=== PATIENT | female | born 1965 | race African-American/Black ===

== ENCOUNTER 2016-06-04 12:12 | Inpatient (IN) | payer MEDICARE, OTHER ==
--- NOTE | ~2016-06-04 | A ---
[facility] Nutrition Therapy DATE: 06/05/16 Patient: AGUILA NATHAN Physician: WOLFGANG Address: [address] [facility] Room/Bed: [address] [place] [address], Zip: [place] [address] Admit Date: 06/04/16 Date of : [birth year] Height: 5 3 Weight: 134 60.8 NUTRITIONAL ASSESSMENT: REASON: 2 NUTRITION RISK PT RE: HOME TUBE FEEDS/TPN + POOR PO INTAKE PT IS 51 Y.O. FEMALE ADMITTED FOR ACUTE PANCREATITIS PMH: CHRONIC PANCREATITIS, ETOH ABUSE, GERD, PNA, ANXIETY, DEPRESSION, PUD, HTN, BIPOLAR DISORDER, HYPOTHYROIDISM, TB, CHOLY, GASTRIC ULCERS Anthropometrics: 5'3", WT: 150# (PER PT) (68 KG), BMI: 26.6 Labs: GLU: 191, BUN: <5, K+: 2.5, NA+:131, AST: 44, ALT: 59, M.0, AMYLASE: 171, LIPASE: 339 Meds: ZOFRAN, PHENERGAN, KCL, MAG SULFATE, NACL, THIAMINE, FOLIC ACID, MVI I/O & Bowel function: 0/800 Skin Integrity: NO KNOWN SKIN ISSUES Estimated Nutrition Needs: INCREASED NUTRIENT NEEDS 2' WEIGHT LOSS NOTED, CURRENT CONDITION, PMH Assessment: CHART REVIEWED AND EVENTS NOTED. PT SEEN FOR 2 NUTRITION RISK POINTS. PT CONFIRMED DECREASED PO INTAKE 2' DECREASED APPETITE PAST 2-3 WEEKS. PT NOTES ABD PAIN/N/V. PT REPORTS LOSING ~20# PAST 2-3 MONTHS/11.7% SEVERE WEIGHT LOSS NOTED (NOTES UBW IS ~170#). THIS RD ENCOURAGED SLOW GRADUAL PO INTAKE ONCE DIET ADVANCES. RD ALSO PROVIDED WRITTEN AND VERBAL LOW FAT DIET EDUCATION WELL ENCOURAGED ETOH CESSATION. PT REPORTED NO DIET QUESTIONS AT THIS TIME. RD TO FOLLOW. SEE RECOMMENDATIONS BELOW. OF NOTE, PT CONFIRMS SHE DOES NOT RECEIVE TPN AT HOME Dx: INADEQUATE PROTEIN-ENERGY INTAKE R/T DX, PMH AEB PT REPORT ABOVE, ~20#/11.7% SEVERE WEIGHT LOSS NOTED. Intervention: 1. NPO 2. LOW FAT DIET EDUCATION Monitoring, Evaluation and Goals: 1. PO INTAKE; PROVIDE AND CONSUME ADEQUATE NUTRITION W/NO C/O N/V/D (PO>50%) 2. LABS; ELECTROLYTES 3. GI; PROMOTE REGULAR GI FUNCTION [facility] Nutrition Therapy DATE: 06/05/16 Patient: AGUILA NATHAN Physician: WOLFGANG Address: [address] [place] [address] Room/Bed: [address] [place] [address], Zip: [place] [address] Admit Date: 06/04/16 Date of : [birth year] Height: 5 3 Weight: 134 60.8 MONITOR: -DIET ADVANCEMENT -PO INTAKE/APPETITE -LABS (K+, MG) -EDUCATION NEEDS Recommendations: 1. ONCE MEDICALLY FEASIBLE, BEGIN WITH CLEARS AND ADVANCE DIET TOLERATED TO LOW FAT 2' DX, PMH 2. IF PO INTAKE MINIMAL, RECOMMEND TO ORDER APPROPRIATE SUPPLEMENTS BID (ENSURE COMPACT, GLUCERNA SHAKES, ENSURE PUDDING) 3. REPLACE ELECTROLYTES NEEDED (K+, MG) 4. ENCOURAGE ADEQUATE KCAL AND PROTEIN INTAKE RD WILL F/U PER PROTOCOL PT IS MODERATELY COMPROMISED Respectfully, BEE JENKINS MS, RD, LD Food and Nutritional Services [facility] cc: client file
--- NOTE | ~2016-06-04 | FU ---
[facility] Nutrition Therapy DATE: 06/10/16 Patient: AGUILA NATHAN Physician: WOLFGANG Address: [address] [place] [address] Room/Bed: [address] [place] [address], Zip: [place] [address] Admit Date: 06/04/16 Date of : [birth year] Height: 5 3 Weight: 161 73.4 NUTRITION MONITORING/FOLLOW-UP: Reason: Follow-up Anthropometrics: Ht: 5'3" Adm wt: 150# BMI: 26.6 Current wt: 161# Labs: Na+ 130, BUN 7, Alb 3.3, Mg++ 1.5, Amyl 58, Lip 53 Meds: Mg, Lopressor, K, Synthroid, Zofran, Phenergan, KCl, NaCl I&O's: 104/2025, 1 BM Skin: no issues Estimated Nutrition Needs: 3055-8591 kcal (20-25 kcal/kg) 82-102 g protein (1.2-1.5 g/kg) Assessment: Chart reviewed, events noted. Pt has been on NPO/clear liquids x 6 days. Pt reported being hungry. Pt c/o chronic abdominal pain and diarrhea. Per RN, pt refused 1-2 clear liquid diet meals and noted only taking bites when given food. Per RN and chart, no plans in place for diet advancement at this time. See recommendations below. Dx: Inadequate protein-energy intake RT PMH AEB ~20#/11.7% severe wt loss, NPO/clear liquid diet x 6 days. -ACTIVE Intervention: 1. Alternative nutrition support 2. NPO/CL x 6 days Monitoring, Evaluation and Goals: 1. Alternative nutrition support; provide >80% of estimated needs 2. Weight; prevent unintentioal weight loss 3. Labs; WNL; Mg++, Amyl, Lip Recommendations: 1. Once medically feasible, advance diet as tolerated to low fat 2' dx, PMH. 2. If pt unable to tolerate PO intake, consider alternative nutrition support of Vital 1.5 @ 20 mL/hr, advance 10 mL q 8 hrs to goal rate of 45 mL/hr + sugar free Prostat BID x 22 hrs (pt on synthroid-hold 1 hr before and 1 hr after administration). This will provide: 1685 kcal/ 96 g protein/ 752 mL free H2O. Free water flushes per . [facility] Nutrition Therapy DATE: 06/10/16 Patient: AGUILA NATHAN Physician: WOLFGANG Address: [address] [place] [address] Room/Bed: [address] [place] [address], Zip: [place] [address] Admit Date: 06/04/16 Date of : [birth year] Height: 5 3 Weight: 161 73.4 3. If TPN warranted, begin TPN 25% dextrose, 5% AA @ 20 mL/hr, advance 10 mL q 12 hrs to goal rate of 70 mL/hr. This will provide: 1764 kcal/ 84 g protein/ GUR = 4.27. Of note pt to have pancreatitis, watch triglycerides. 4. Monitor labs daily (Mg++, K+, Phos, Na+) blood sugars and triglycerides. Status: Pt is at a moderate-severe nutritional risk. RD will f/u per protocol. Respectfully, Salud Talavera, Pipe Covering [employer]older Jenn Craft MS, RD, LD Food and Nutritional Services [facility] cc: client file
--- NOTE | ~2016-06-04 | CO ---
Unit #: [id number] #: [id number] Patient: AGUILA NATHAN [id number] [address] [place], [place] [address] [id number] I MR#: [id number] NAME: AGUILA NATHAN ROOM: 303 Age: 51 Sex: F Admission Date: 06/04/2016 : 1965 Attending Physician: Dionne Hamm M.D. Primary Care Physician: Giovana Martines M.D. Consultation Date: 06/04/2016 CONSULTATION REPORT REASON FOR CONSULTATION Acute pancreatitis. HISTORY OF PRESENT ILLNESS Ms. Nathan is a 51-year-old, -Faroese female. She was admitted with complaints of worsening abdominal pain and she has chronic alcoholic pancreatitis. She says her symptoms have been getting worse for the last three days. She has not been able to eat and throwing up. She denies any fever or chills. She denies any hematemesis. Abdominal pain is mostly in the upper abdomen, worse with food. PAST HISTORY Significant for alcoholic pancreatitis, also with history of depression, hypertension. She is status post gallbladder surgery. She has also had pancreatic pseudocyst drained, as well as ERCP for pancreatic drainage with Dr. Hoyos previously. MEDICATIONS AT HOME Voltaren, trazodone, metoprolol, hydralazine, Phenergan, Zyrtec, Synthroid, Singulair, olanzapine, Prozac and Remeron. ALLERGIES Allergies to Demerol. SOCIAL HISTORY She is actively drinking alcohol up to a pint a day by chart review. She denied any smoking or any other drug abuse. REVIEW OF SYSTEMS Complete ten point review of systems was done, which is unremarkable other than as mentioned above. PHYSICAL EXAMINATION VITAL SIGNS: Stable, temperature 99, pulse 78, respirations 16, blood pressure 195/123 on arrival, it is better now. HEENT: Pupils equal and reactive. Sclerae anicteric. Oral mucosa moist. NECK: No JVD. No lymphadenopathy. CHEST: Clear to auscultation bilaterally. CARDIOVASCULAR SYSTEM: Regular rate and rhythm. No murmurs. ABDOMEN: Tenderness, epigastric left upper quadrant area. No guarding. No rebound. No ascites. No organomegaly. No masses palpable. EXTREMITIES: Without clubbing, cyanosis or edema. NEUROLOGIC: Intact. SKIN: Warm and dry. Unit #: [id number] #: [id number] Patient: AGUILA NATHAN DIAGNOSTIC STUDIES LABORATORY STUDIES: Sodium 133, potassium 2.8, AST 91, ALT 88, amylase 131, lipase 410. Coags not done. CBC with a hemoglobin of 10.8, white count 6.5, and platelet count of 247. ASSESSMENT AND PLAN 1. Patient with chronic pancreatitis, alcohol related with active heavy drinking now with worsening symptoms. Acute on chronic pancreatitis, most likely. Will continue with conservative treatment. 2. Anemia, history of gastric ulcers. Continue PPI therapy. 3. Alcoholism. Will watch for DT precautions. 4. History of interventions with Dr. Hoyos in the past. Will get the reports. Will get a CT scan to look for any recurrent stenosis or other complications. Thank you Dr. Gibbons for this interesting consult. Will follow along. Dictated by... Anitha Patel/adriana TD: 06/05/2016 09:03 JOB #: [id number] CONSULTATION REPORT Page 1 of 1 X Jai King MD X CONSULTATION REPORT
--- NOTE | ~2016-06-04 | CO ---
Unit #: [id number] #: [id number] Patient: ORLANDO NATHAN [id number] [facility]. [place], [place] [address] [id number] I MR#: [id number] NAME: ORLANDO NATHAN ROOM: 237 Age: 51 Sex: F Admission Date: 06/04/2016 : 1965 Attending Physician: Dionne Hamm M.D. Primary Care Physician: Giovana Martines M.D. Consultation Date: 06/05/2016 CONSULTATION REPORT REASON FOR CONSULTATION Anxiety/depression, mood lability. HISTORY OF PRESENT ILLNESS Ms. Orlando Nathan is a 51-year-old -[place]ian female seen in 303, bed 1, at [facility]. The patient was admitted with acute pancreatitis. Patient reports taking medication for depression/anxiety. The patient is withdrawn, isolative, flat affect, guarded. The patient was admitted with abdominal pain. The patient also has a history of alcohol abuse but denied any recent abuse. Denied any use of drugs. Patient currently denied any suicidal or homicidal ideation but reported feeling sad and depressed, trouble sleeping, anxiety. PAST PSYCHIATRIC HISTORY Remarkable for history of alcohol abuse and depression/anxiety. MEDICAL HISTORY AND MEDICATION HISTORY Is remarkable for a history of pancreatitis with pseudocyst, alcohol abuse, hypertension, gastroesophageal reflux disease, tuberculosis treated, bipolar disorder, hypothyroidism. Medication history - patient is currently Prozac 10 mg daily; Remeron; Olanzapine 2.5 mg at bedtime; Synthroid; Singulair; Zyrtec; Phenergan; hydralazine; metoprolol; trazodone 150 mg at bedtime; and Voltaren gel. FAMILY HISTORY AND SOCIAL HISTORY The patient has a good support system. No history of any abuse. History of substance abuse in the past. REVIEW OF SYSTEMS A complete review of systems is unremarkable. MENTAL STATUS EXAMINATION General appearance - Patient is dressed casually, lying comfortably in bed, withdrawn, isolative, flat affect. Attention span and concentration - Fair. Speech - slow in volume, monotone. Oriented to place and person. Mood and affect - Sad, dysphoric, withdrawn, isolative. Thought process - Coherent. Thought content - Guarded. Paranoid but denied any thoughts of harming self or others or any psychotic symptoms. Denied any auditory or visual hallucination. Recent and remote memory - fair. Language - Able to name objects, repeat phrases. Fund of knowledge - Fair. Insight and judgment - Fair to slightly impaired. DIAGNOSIS PSYCHIATRIC: Major depressive disorder, recurrent, severe, F33.2. Unit #: [id number] #: [id number] Patient: ORLANDO NATHAN SECONDARY DIAGNOSIS: Deferred. MEDICAL DIAGNOSIS: Please refer to H and P. STRESSORS: Psychosocial stressors. ASSESSMENT/PLAN 1. Supportive psychotherapy and psychoeducation provided to the patient. 2. Educated about benefits and side effects of medication and course and prognosis of illness. 3. If needed consider further adjustment of medication. Continue with the current combination of Prozac, Remeron, Zyprexa and Trazodone. If needed, consider Melatonin for sleep. Please feel free to call if any questions, telephone number . Dictated by... Philip Ya M.D. EVA/adriana TD: 06/08/2016 15:46 JOB #: [id number] CONSULTATION REPORT Page 1 of 1 X Philip Ya MD X CONSULTATION REPORT
--- NOTE | ~2016-06-04 | CT2 ---
[facility] A Service of [facility] & [facility] RADIOLOGY TEXT RESULTS PATIENT: AGUILA NATHAN LOCATION: [facility] 237-01 : [birth year] UNIT #: [id number] AGE: [address]: Dionne Hamm MD SEX: F ORDER DR: [id number] [facility] [address] [facility]. [place], [place] [address] [id number] MR#: [id number] Acc #: [id number] NAME: AGUILA NATHAN : 1965 SEX: F STUDY DATE/TIME: 06/04/2016 17:32 UNIT: CEDOF ROOM: 99677 STUDY DESCRIPTION: CT Abd and Pelv W Cont Attending Physician: Bhavani Gibbons M.D. Ordering Physician: Bhavani Gibbons M.D. Primary Care Physician: Giovana Martines M.D. MEDICAL IMAGING REPORT This report is preliminary unless electronic signature is present EXAM CT abdomen and pelvis with IV contrast 06/04/2016 COMPARISON August 08, 2015, July 12, 2015, August 16, 2005 INDICATIONS 51-year-old female with acute pancreatitis. Diffuse abdominal pain today. Vomiting and diarrhea. TECHNIQUE Axial CT imaging of the abdomen was performed after IV administration of 100 mL Isovue 370. Coronal and sagittal reformats were constructed. This CT exam was performed with one or more of the following radiation dose reduction techniques: automatic exposure control, adjustment of mA and/or kV according to patient size, and iterative reconstruction. FINDINGS As compared to August 08, 2015 pancreatic stent appears stable, terminating in the second portion of the duodenum. There is diffuse edema of the pancreas with peripancreatic fluid. No convincing evidence of abscess. There is hepatic steatosis. There has been prior cholecystectomy. There is a small fat-containing left inguinal hernia. There is dextroscoliosis of the lumbar spine. There is disc height loss and advanced degenerative endplate change at L2-L3 where there is also a small posterior disc protrusion. Anterior osteophyte is also noted at this level. No acute findings in the imaged lower chest. There is mild cardiomegaly. There is small amount of fluid around the spleen, likely transmitted from the pancreas. The adrenal glands, kidneys and urinary bladder are unremarkable. There is an exophytic uterine leiomyoma which is compressing the urinary bladder. This measures up to approximately 1.5 x 1.5 x 1.9 cm. No adnexal masses. Ingested contrast reaches the rectum. [facility] A Service of [facility] RADIOLOGY TEXT RESULTS PATIENT: AGUILA NATHAN LOCATION: A 237-01 : [birth year] UNIT #: [id number] AGE: [address]: Dionne Hamm MD SEX: F ORDER DR: There are scattered sigmoid and left colonic diverticula. There is no evidence of bowel obstruction. Appendix is normal. There is inflammatory change near the splenic flexure of the colon which appears to abut 1 of the diverticula of the colon. This is favored to be transmitted inflammatory frame changer primary diverticulitis as the diverticulum does not appear particularly inflamed. No pneumoperitoneum. No convincing evidence of pancreatic necrosis at this time. No evidence of abscess. There is normal caliber of the abdominal aorta. The splenic vein does appear attenuated as it passes posterior to the pancreas but it remains patent. There is no evidence of venous thrombosis on the current exam. Bilateral pelvic phleboliths. No adenopathy. IMPRESSION 1. Findings most consistent with an acute uncomplicated pancreatitis. Pancreatic stent remains in stable position from August 08, 2015. The distal tip terminates in the duodenum. 2. Small amount of free fluid along the pancreas and tracking to the left upper quadrant of the abdomen. There is some free fluid and inflammatory change which abuts the splenic flexure of the colon where there is a small diverticulum. This diverticulum does not appear inflamed and this likely reflects transmitted inflammatory change and much less likely an acute diverticulitis. 3. Prior cholecystectomy. 4. Small fat-containing left inguinal hernia. 5. Severe degenerative disc and endplate change at L2-L3. 6. Subserosal exophytic uterine leiomyoma measuring up to 1.9 cm. 7. Not mentioned specifically in the body of the report there appears to be a prominent lymph node adjacent to the pancreatic body measuring up to 8 mm short axis, likely reactive. Consider imaging followup. Dictated by... Crow Ruiz M.D. THIS IS AN ELECTRONICALLY VERIFIED REPORT Crow Ruiz M.D. at 06/09/2016 9:01 AM Pierce TD: 06/04/2016 18:21 JOB #: [id number] MEDICAL IMAGING REPORT Page 1 of 1 COPY
--- NOTE | ~2016-06-04 | EKG ---
PATIENT: AGUILA NATHAN UNIT #: [id number] Ventricular Rate: 89 BPM Atrial Rate: 89 BPM P-R Interval: 150 ms QRS Duration: 94 ms Q-T Interval: 414 ms QTC Calculation(Bezet): 503 ms P [place]: 24 degrees Calculated R [place]: 29 degrees Calculated T [place]: 9 degrees Diagnosis Line: Normal sinus rhythm Diagnosis Line: Nonspecific ST and T wave abnormality Diagnosis Line: Prolonged QT Diagnosis Line: Abnormal ECG Diagnosis Line: When compared with ECG of 03-JAN-2009 20:42, Diagnosis Line: QRS duration has increased Diagnosis Line: Confirmed by BESSIE BARKER MD ([id number]) on 06/04/2016 Diagnosis Line: 9:24:03 PM INTERPRETING MD: MJ VELASCO
--- NOTE | ~2016-06-04 | HP ---
Unit #: [id number] #: [id number] Patient: AGUILA NATHAN [id number] [facility]. [place], [place] [address] [id number] I MR#: [id number] NAME: AGUILA NATHAN ROOM: 44031 Age: 51 Sex: F Admission Date: 06/04/2016 : 1965 Attending Physician: Bhavani Gibbons M.D. Primary Care Physician: Giovana Martines M.D. HISTORY AND PHYSICAL CHIEF COMPLAINT Abdominal pain. HISTORY OF PRESENT ILLNESS The patient is a 51-year-old female with a past medical history of pancreatitis, alcohol abuse, pancreatic pseudocyst, hypertension, GERD, TB, and bipolar disorder, who presented to the emergency department for evaluation of the above. The patient states that she has had decreased appetite for the past two to three weeks. She has had three days of nausea and vomiting. She reports more than 10 bouts of nonbloody emesis within the past 24 hours. She has also had a few bouts of loose stool. She has had epigastric pain that started yesterday that she describes as "sharp." It has been constant in nature. There are no exacerbating or alleviating factors. She states that the pain is similar to when she has had pancreatitis in the past. She denies any urinary symptoms. She states that she has lost about 20 pounds over the past two months. Her last drink was three days ago. She typically drinks a pint of alcohol five days a week. In the emergency department, amylase and lipase are 131 and 410, respectively. Potassium is 2.8. She is being admitted to [facility] for evaluation and further treatment. PAST MEDICAL HISTORY 1. Admission to [facility] August 08, 2015, for pancreatitis. She was transferred to [facility] due to recent stent placement done by Dr. Hoyos. Patient states that the stent has since been removed. She does not see Dr. Hoyos as an outpatient. 2. History of pancreatitis with pseudocyst, status post stent placement and removal. 3. Alcohol abuse. 4. Hypertension. 5. Gastroesophageal reflux disease. 6. Tuberculosis, treated. 7. Bipolar disorder. 8. Hypothyroidism. PAST SURGICAL HISTORY 1. Exploratory laparotomy. 2. Tonsillectomy. 3. Cholecystectomy. 4. Pancreatic stent. 5. Colonoscopy. Unit #: [id number] #: [id number] Patient: AGUILA NATHAN SOCIAL HISTORY The patient lives alone. There is no tobacco or illicit drug use. The patient drinks a pint of alcohol five days a week with the last drink being three days ago. She is currently on disability. FAMILY HISTORY Notable for her mother having hypertension. ALLERGIES DEMEROL. HOME MEDICATIONS 1. Voltaren gel. 2. Trazodone. 3. Metoprolol. 4. Hydralazine. 5. Phenergan. 6. Zyrtec. 7. Synthroid. 8. Singulair. 9. Olanzapine. 10. Prozac. 11. Remeron. REVIEW OF SYSTEMS A complete review of systems is negative except as indicated in the History of Present Illness. PHYSICAL EXAMINATION VITAL SIGNS: Temperature is 99.1, pulse 78, respirations 16, and blood pressure 195/123. GENERAL: Patient is an female who is awake, alert, and in no acute distress. HEENT: Head is atraumatic. Mucous membranes are dry. NECK: Supple. Trachea is midline. CARDIOVASCULAR: Regular rate and rhythm. LUNGS: Clear to auscultation bilaterally with no increased work of breathing. ABDOMEN: Soft. She is tender to palpation in the epigastric area. Bowel sounds are present in all four quadrants. EXTREMITIES: Nontender with no pedal edema. NEUROLOGIC: Patient is awake and alert. She follows commands. PSYCHIATRIC: Mood and affect are normal. Patient is cooperative. SKIN: Skin of examined areas is warm and dry. DIAGNOSTIC STUDIES LABORATORY: Complete blood count notable for hemoglobin and hematocrit of 10.8 and 34.7, respectively. Comprehensive metabolic panel notable for a sodium of 133, potassium 2.8, chloride 91, and AST and ALT 91 and 88, respectively. Amylase and lipase are 131 and 410, respectively. Alcohol level is 6. Urinalysis notable for trace protein. ASSESSMENT The patient is a 51-year-old female with: 1. Acute pancreatitis secondary to #2. 2. Alcohol abuse. 3. Hypokalemia. Unit #: [id number] #: [id number] Patient: AGUILA NATHAN 4. History of pancreatic pseudocyst, status post stent placement and removal. 5. Microcytic anemia. The patient's hemoglobin was 8.4 on December 04, 2015. It is 10.8 today. 6. Hypertension. 7. Gastroesophageal reflux disease. 8. Tuberculosis, treated. 9. Bipolar disorder. 10. Hypothyroidism. PLAN 1. Admit to intermediate level. 2. N.p.o. except ice chips. 3. P.r.n. morphine. 4. P.r.n. Zofran. 5. Check CT of the abdomen and pelvis with contrast for further evaluation of pancreatitis and history of pseudocyst. 6. IV fluids per alcohol withdrawal protocol. 7. Alcohol withdrawal protocol. 8. Librium. 9. Post Anesthesia Nurse/Social Work consult regarding alcohol abuse. 10. Consult Dr. King regarding pancreatitis. 11. Check magnesium level. 12. Potassium/magnesium protocol. 13. P.r.n. hydralazine. 14. Check urinalysis and urine toxicology screen. 15. EKG and cardiac enzymes. 16. Repeat labs in the morning including magnesium, amylase, and lipase. 17. SCDs for DVT prophylaxis. 18. Additional workup and consultants based on above. 1. Dictated by Bhavani Gibbons M.D. FAREED/rancho TD: 06/04/2016 16:01 JOB #: [id number] HISTORY AND PHYSICAL Page 1 of 1 X Bhavani Gibbons MD X HISTORY AND PHYSICAL
--- NOTE | ~2016-06-04 | DS ---
Unit #: [id number] #: [id number] Patient: AGUILA NATHAN [id number] [address] [place], [place] [address] [id number] I MR#: [id number] NAME: AGUILA NATHAN ROOM: 237 Age: 51 Sex: F Admission Date: 06/04/2016 : 1965 Discharge Date: 06/10/2016 Attending Physician: Dionne Hamm M.D. Primary Care Physician: Giovana Martines M.D. DISCHARGE SUMMARY FINAL DIAGNOSES 1. Acute pancreatitis. 2. Hypokalemia. 3. Hypomagnesemia. SECONDARY DIAGNOSES 1. Hypertension. 2. Gastroesophageal reflux disease. 3. History of bipolar disorder. 4. Hypothyroidism. CONSULTS 1. Interventional radiology for port placement. 2. Dr. King, GI. PROCEDURES She had a PowerPort placed in the right anterior chest wall on 06/10/16. HOSPITAL COURSE A 51-year-old -[place] female who basically is well known to me presents here to the hospital with abdominal pain. She was admitted for abdominal pain and a flare up of pancreatitis. She does have a history of alcohol abuse and she has seen Dr. Salcedo in the past. She was seen by Dr. King who basically agreed with conservative management and encouraged her to follow up with Dr. Salcedo as an outpatient. She had a CT scan of her abdomen and pelvis on 06/04/16 and findings were most consistent with an acute uncomplicated pancreatitis. The pancreatic stent remained stable in position from August 08, 2015. The distal tube terminates in the duodenum. There was a small amount of free fluid along the pancreas, tracking to the left upper quadrant of the abdomen with some free fluid and inflammatory change was noted. She had a fat-containing left inguinal hernia also identified and she has severe degenerative disc and endplate change of L2-3 vertebrae. She had a subserosal exophytic uterine leiomyoma measuring up to 1.9 cm and they also identified a likely reactive lymph node measuring up to 8 mm adjacent to the pancreatic body and they said it was likely reactive and to consider followup. Patient did improve clinically. She was treated with IV fluids, n.p.o. and pain medication. Pain medications were adjusted. Eventually her diet was planned to be advanced. However, prior to Unit #: [id number] #: [id number] Patient: AGUILA NATHAN she lost her IV access and decision was made to consult Interventional Radiology for port placement. Port was placed. She is evaluated, suitable and stable for discharge with discharge in stable condition. FOLLOWUP 1. Patient has a followup appointment in my office on 06/11/16 at 10:00 a.m. in the morning. 2. The patient is also schedule to follow up with Interventional Radiology on 06/20/16 at 11:[address] [facility]. MEDICATIONS ON DISCHARGE Include: 1. Magnesium oxide 400 mg p.o. b.i.d. for hypomagnesemia. 2. Prozac 10 mg p.o. q.h.s. 3. Trazodone 150 mg p.o. q.h.s. 4. Zyrtec 10 mg p.o. daily. 5. Phenergan 25 mg p.o. q.6 h. p.r.n. for nausea. 6. Bentyl 10 mg p.o. q.8 h. p.r.n. cramps. 7. Librium 25 mg p.o. q.12 h. 8. Metoprolol tartrate 100 mg p.o. b.i.d. 9. Hydralazine 25 mg p.o. q.8 h. 10. Singulair 10 mg p.o. daily. 11. Multivitamin one tablet p.o. daily. 12. Melatonin 3 mg p.o. q.h.s. 13. Diclofenac topical gel 100 g apply topically to the affected skin. 14. Roxicodone 10 mg p.o. q.4 h. p.r.n. per home dose. 15. Olanzapine 2.5 mg p.o. q.h.s. 16. Levothyroxine 15 mcg p.o. daily DISCHARGE INSTRUCTIONS Discharge instruction would include: 1. Do not shower for 48 hours. 2. Do not scrub the right front of the chest. 3. Port needs to be flushed with heparin, flush 10 units per mL once at least monthly. Time spent coordinating discharge is about 45 minutes. Dictated by... Anitha HsuO/carla TD: 06/10/2016 18:23 JOB #: [id number] Unit #: [id number] #: [id number] Patient: VENITAAGUILA DISCHARGE SUMMARY Page 1 of 1 X Giovana Martines MD X DISCHARGE SUMMARY
--- NOTE | ~2016-06-04 | CO ---
Unit #: [id number] #: [id number] Patient: ORLANDO NATHAN [id number] [address] [place], [place] [address] [id number] I MR#: [id number] NAME: ORLANDO NATHAN ROOM: 303 Age: 51 Sex: F Admission Date: 06/04/2016 : 1965 Attending Physician: Dionne Hamm M.D. Primary Care Physician: Giovana Martines M.D. Consultation Date: 06/06/2016 CONSULTATION REPORT REASON FOR CONSULTATION Followup. DISCUSSION Ms. Orlando Nathan is a 51-year-old female seen in followup on 06/06/16 in room 303. The patient was admitted with acute pancreatitis. The patient reported that she is still having difficulty with sleep, compliant with medication. Withdrawn, (1) , flat affect but denied any thoughts of harming self or others. The patient is currently on Prozac, Zyprexa combination. The patient is also on trazodone. REVIEW OF SYSTEMS A complete review of systems is unremarkable. MENTAL STATUS EXAMINATION General appearance - Patient is dressed casually. Attention span, concentration - Fair. Speech - Regular rate. Oriented to time, place and person. Mood and affect - Sad, dysphoric. Thought process - Coherent. Thought content - Guarded. Paranoid but denied any thoughts of harming self or others. Recent and remote memory - Fair. Language - Able to name objects, repeat phrases. Fund of knowledge - Fair. Insight and judgment - Fair to slightly impaired. DIAGNOSIS PSYCHIATRIC: Major depressive disorder, recurrent, severe, F33.2. SECONDARY DIAGNOSIS: Deferred. ASSESSMENT AND PLAN 1. Supportive psychotherapy and psychoeducation provided to the patient. 2. Educated about benefits and side effects of medication and course and prognosis of illness. 3. Advised at this time to continue with current medication, a combination of Prozac, Zyprexa and Desyrel. The patient is on Desyrel 150 mg daily but still having trouble with sleep. Plan to add melatonin 5 mg at bedtime. If needed, consider further adjustment of medications. Please feel free to call with any questions. Dictated by... Unit #: [id number] #: [id number] Patient: ORLANDO NATHAN Anitha Kirby TD: 06/07/2016 15:50 JOB #: [id number] CONSULTATION REPORT Page 1 of 1 X Philip Ya MD CONSULTATION REPORT
--- NOTE | ~2016-06-04 | XA91 ---
[facility] A Service of [facility] & [facility] RADIOLOGY TEXT RESULTS PATIENT: AGUILA NATHAN LOCATION: C2A - : [birth year] UNIT #: [id number] AGE: [address]: Dionne Hamm MD SEX: F ORDER DR: [id number] [facility] [address]. [place], [place] [address] [id number] I MR#: [id number] Acc #: [id number] NAME: AGUILA NATHAN : 1965 SEX: F STUDY DATE/TIME: 06/10/2016 13:31 UNIT: C2A ROOM: 237 STUDY DESCRIPTION: XA CVC Tunneled W Port Attending Physician: Dionne Hamm M.D. Ordering Physician: Dionne Hamm M.D. Primary Care Physician: Giovana Martines M.D. MEDICAL IMAGING REPORT This report is preliminary unless electronic signature is present EXAM MediPort placement INDICATION New for IV access in a patient with a history of pancreatitis. She has had a prior history of pancreatic stent and was recently admitted with pancreatitis on June 04, 2016. PROCEDURE The procedure was explained to the patient. The risks, benefits, potential complications and potential for alternatives forms of treatment. Informed consent was obtained and prior to initiating the procedure, a formal timeout procedure was performed. Using all elements of maximal sterile barrier technique including hand hygiene, caps, sterile gowns and gloves, and masks, the right neck was prepped with 2% Chlorhexidine cutaneous antisepsis and covered with a large sterile sheet. Real-time sterile ultrasound guidance was used to localize the right internal jugular vein which was found to be patent and compressible. Hard copy ultrasound image was obtained and after local anesthesia with 1% Xylocaine. The vein was punctured. Using real-time sterile ultrasound guidance, an 0.018 guidewire was advanced into the superior vena cava under fluoroscopic guidance. Micropuncture sheath was placed and a J-wire was advanced into the inferior vena cava under fluoroscopic guidance. At this point, the skin and subcutaneous tissues of the right anterolateral chest wall were anesthetized with buffered lidocaine and lidocaine with epinephrine. A small skin incision was made and the port pocket was created using a combination of blunt and sharp dissection. The pocket was seated within the pocket and secured using two 3-0 Vicryl sutures and was tunneled up through the right anterolateral chest wall to the insertion side at the neck. A sheath was advanced over the wire, and the catheter was measured and trimmed and was then advanced through peel-away sheath and positioned at the cavoatrial junction. [facility] A Service of [facility] RADIOLOGY TEXT RESULTS PATIENT: AGUILA NATHAN LOCATION: [facility] 237-01 : [birth year] UNIT #: [id number] AGE: [address]: Dionne Hamm MD SEX: F ORDER DR: Following placement, the catheter flushed and aspirated easily. It was left accessed as the patient has very limited IV access. Deep layer of the port pocket was closed using interrupted 3-0 Vicryl sutures and a running 4-0 Monocryl suture was used close the skin. A single 4-0 Monocryl suture was used to close the insertion site at the neck and Dermabond was supplied to act as a dressing. Patient tolerated the procedure well. Total fluoroscopy time was 0.2 minutes and a single fluoroscopic image was obtained. Patient did received conscious sedation consisting of 5 mg of Versed and 200 mcg of Fentanyl. Continuous monitoring was provided throughout the procedure. Total sedation time was 1 hour and 5 minutes. Continuous monitoring was provided by the IVR nurse. IMPRESSION Successful placement of a right femoral jugular vein MediPort which terminates at the cavoatrial junction. This catheter is ready for immediate use. Ultrasound and fluoroscopy were used during the procedure, and permanent images were saved. Dictated by... Kayley Ulrich M.D. THIS IS AN ELECTRONICALLY VERIFIED REPORT Kayley Ulrich M.D. at 06/12/2016 6:30 PM AFF/aa TD: 06/12/2016 13:11 JOB #: [id number] MEDICAL IMAGING REPORT Page 1 of 1 COPY
[2016-06-04 12:00] LABS: BASOPHIL# 0.1 X10e3 (0-0.3); BASOPHIL% 1.1 % (0-2.5); DIFF IND YES; EOSINOPHIL% 0.3 % (0.0-7.0); HEMATOCRIT 34.7 % (35.0-45.0); HEMOGLOBIN 10.8 gm/dL (12.0-16.0); LYMPHOCYTE# 1.4 X10e3 (1.0-3.5); LYMPHOCYTE% 21.1 % (17.0-45.0); MEAN CORPUSCULAR HGB CONC 31.2 g/dL (30-36); MEAN PLATELET VOLUME 8.4 FL (6.5-11.5); MONOCYTE# 0.4 X10e3 (0-1.0); MONOCYTE% 6.7 % (3.0-12.0); NEUTROPHIL# 4.6 X10e3 (1.5-7.1); NEUTROPHIL% 70.8 % (40-75); PLATELET COUNT 247 X10e3 (140-420); RED BLOOD COUNT 4.33 X10e (3.90-5.30); RED CELL DISTRIBUTION WIDTH 22.4 % (11.0-15.5); WHITE BLOOD COUNT 6.5 X10e3 (4.0-10.5)
[~2016-06-04 12:12] MED LIST: ACETAMINOPHEN PO; BUSPIRONE HCL10 M1 PO; BUSPIRONE HCL10 MG PO; CARAFATE1 G PO; CERTAGEN PO; CETIRIZINE HCL10 MG PO; CIPRO PO; CIPRO250 MG PO; COLCHICINE PO; CYANOCOBALAM1000 MCG PO; DARVOCET-N 1001 TAB PO; DEPAKOTE PO; DESYREL150 M1 PO; EPINASTINE HCL5 ML OP; FAMOTIDINE PO; FLAGYL PO; FLONASE 0.05% N16 G1; FLONASE16 GM; FOLATE PO; FOLIC ACID PO; INH PO; KEPPRA750 MG PO; LAMICTAL100 MG PO; LEVAQUIN PO; LEVOTHYROXINE50 MCG PO; LEVOXYL50 MC1 PO; LISINOPRIL-HCTZ1 T15 PO; LOMOTIL WHITE2.5 M1 PO; LOPRESSOR PO; LORTAB 5/500 TA1 TA1 PO; LYRICA PO; METOPROLOL TAR100 MG PO; MIRTAZAPINE30 M1 PO; MIRTAZAPINE30 MG PO; MOBIC PO; MUCUS RELIEF600 MG PO; NORCO 10-325 TA1 TAB PO; NORVASC PO; OMEPRAZOLE40 M1 PO; PERCOCET 10/3251 TAB PO; PERCOCET5/325 PO; PHENERGAN SUPP25 M1 PR; PHENERGAN25 MG PO; PRILOSEC40 MG PO; PROTONIX PO; REMERON15 MG PO; RIFAMPIN300 MG PO; ROBITUSSIN-DM120 ML PO; SEROQUEL PO; SINGULAIR PO; SYNTHROID PO; THIAMINE HCL100 MG PO; TOPROL XL PO; TOPROL XL50 MG PO; VICODIN 5/500 T1 TAB PO; VITAMIN D250000 UNIT PO; ZYRTEC PO; ZYRTEC10 M1 PO; ZYRTEC10 M2 PO; [UNRECOGNIZED DRUG - REMARK]
[2016-06-04 12:21] LABS: ANISOCYTOSIS MOD; NUCLEATED RED BLOOD CELL 1 /100 ([, 0]); PLATELET ESTIMATE NORMAL (NORMAL)
[2016-06-04 12:22] LABS: HYPOCHROMIA SL; MICROCYTOSIS SL
[2016-06-04 12:34] LABS: ALBUMIN SERUM 4.9 g/dL (3.5-5.0); BILIRUBIN, DIRECT 0.2 mg/dL (0.0-0.2); BILIRUBIN,TOTAL 1.2 mg/dL (0.2-2.0); BUN/CREATININE RATIO 13.75; CALCIUM SERUM 9.8 mg/dL (8.4-10.2); CREATININE SERUM 0.8 mg/dL (0.6-1.4); GLOM FILT RATE Estimated 100.4 mL/min (>60); PROTEIN TOTAL SERUM 9.4 g/dL (6.0-8.3)
[2016-06-04 12:37] LABS: POTASSIUM 2.8 mmol/L (3.5-5.1)
[2016-06-04 13:04] LABS: URINE SOURCE CLEAN CATCH
[2016-06-04 13:13] LABS: URINE APPEARANCE CLEAR; URINE BILIRUBIN NEG (NEG); URINE BLOOD NEG (NEG); URINE COLOR YELLOW; URINE GLUCOSE NEG (NEG); URINE KETONE 3+ (NEG); URINE LEUKOCYTE ESTERASE NEG (NEG); URINE NITRATE NEG (NEG); URINE PH 6.5 (5-8); URINE PROTEIN TRACE (NEG); URINE SPECIFIC GRAVITY 1.024 (1.003-1.035)
[2016-06-04 13:19] LABS: CULTURE INDICATED? NO
[2016-06-04] MEDS ORDERED: VOLTAREN100 GM TOP (13:49)
[2016-06-04] MEDS ORDERED: TRAZODONE HCL150 MG PO (13:50)
[2016-06-04] MEDS ORDERED: METOPROLOL TAR100 MG PO (13:50)
[2016-06-04] MEDS ORDERED: PROZAC10 M1 PO (13:51)
[2016-06-04] MEDS ORDERED: MONTELUKAST SOD10 MG PO (13:51)
[2016-06-04] MEDS ORDERED: OLANZAPINE2.5 MG PO (13:53)
[2016-06-04] MEDS ORDERED: HYDRALAZINE HCL25 MG PO (13:54)
[2016-06-04] MEDS ORDERED: ZYRTEC10 M1 PO (13:54)
[2016-06-04] MEDS ORDERED: PHENERGAN25 M1 PO (13:54)
[2016-06-04] MEDS ORDERED: LEVOTHYROXINE50 MCG PO (13:55)
[2016-06-04 14:38] LABS: AMPHETAMINE NEG (NEG); BARBITURATES NEG (NEG); BENZODIAZEPINES NEG (NEG); COCAINE NEG (NEG); MARIJUANA POS (NEG); OPIATES POS (NEG); TRICYCLIC ANTIDEPRESSANTS NEG (NEG); U METHADONE NEG (NEG)
[2016-06-04 15:10] LABS: %MB 1.2 % (0.0-4.0); MB 1.4 ng/ml
[2016-06-04 21:16] LABS: %MB 1.1 % (0.0-4.0); MB 1.1 ng/ml
[2016-06-05 05:45] LABS: BASOPHIL% 0.1 % (0-2.5); HEMATOCRIT 29.7 % (35.0-45.0); HEMOGLOBIN 9.4 gm/dL (12.0-16.0); LYMPHOCYTE# 0.3 X10e3 (1.0-3.5); MEAN CELL VOLUME 80.2 FL (83-96); MEAN CORPUSCULAR HEMOGLOBIN 25.5 PG (28-34); MEAN CORPUSCULAR HGB CONC 31.8 g/dL (30-36); MEAN PLATELET VOLUME 8.2 FL (6.5-11.5); MONOCYTE# 0.1 X10e3 (0-1.0); MONOCYTE% 1.2 % (3.0-12.0); NEUTROPHIL% 93.7 % (40-75); PLATELET COUNT 151 X10e3 (140-420); RED CELL DISTRIBUTION WIDTH 22.4 % (11.0-15.5); WHITE BLOOD COUNT 6.4 X10e3 (4.0-10.5)
[2016-06-05 05:46] LABS: DIFF IND NO
[2016-06-05 06:42] LABS: ALKALINE PHOSPHATASE 68 U/L (32-92); ALT (SGPT) 59 U/L (10-40); AMYLASE 171 U/L (0-46); AST (SGOT) 44 U/L (10-42); CALCIUM SERUM 8.9 mg/dL (8.4-10.2); CARBON DIOXIDE 25 mmol/L (22-31); CHLORIDE 92 mmol/L (100-111); CREATININE SERUM 0.8 mg/dL (0.6-1.4); GLOM FILT RATE Estimated 100.4 mL/min (>60); GLUCOSE FASTING 191 mg/dL (70-110); LIPASE 339 U/L (22-51); PROTEIN TOTAL SERUM 7.6 g/dL (6.0-8.3); SODIUM 131 mmol/L (135-145)
[2016-06-05 06:43] LABS: BLOOD UREA NITROGEN <5 mg/dL (9-23); BUN/CREATININE RATIO 6.25
[2016-06-05 06:45] LABS: POTASSIUM 2.5 mmol/L (3.5-5.1)
[2016-06-06 09:37] LABS: HEMATOCRIT 32.6 % (35.0-45.0); HEMOGLOBIN 9.9 gm/dL (12.0-16.0); MEAN CORPUSCULAR HEMOGLOBIN 24.6 PG (28-34); MEAN CORPUSCULAR HGB CONC 30.4 g/dL (30-36); MEAN PLATELET VOLUME 9.2 FL (6.5-11.5); RED BLOOD COUNT 4.02 X10e (3.90-5.30); RED CELL DISTRIBUTION WIDTH 23.1 % (11.0-15.5); WHITE BLOOD COUNT 9.6 X10e3 (4.0-10.5)
[2016-06-06 09:45] LABS: ALBUMIN SERUM 3.3 g/dL (3.5-5.0); BILIRUBIN,TOTAL 0.7 mg/dL (0.2-2.0); CREATININE SERUM 0.7 mg/dL (0.6-1.4); GLOM FILT RATE Estimated 117.9 mL/min (>60); MAGNESIUM 1.7 mg/dL (1.6-3.0); PROTEIN TOTAL SERUM 6.8 g/dL (6.0-8.3)
[2016-06-07 05:25] LABS: HEMATOCRIT 28.1 % (35.0-45.0); HEMOGLOBIN 8.6 gm/dL (12.0-16.0); MEAN CELL VOLUME 81.3 FL (83-96); MEAN CORPUSCULAR HEMOGLOBIN 24.8 PG (28-34); MEAN CORPUSCULAR HGB CONC 30.5 g/dL (30-36); MEAN PLATELET VOLUME 9.6 FL (6.5-11.5); RED BLOOD COUNT 3.46 X10e (3.90-5.30); RED CELL DISTRIBUTION WIDTH 23.1 % (11.0-15.5); WHITE BLOOD COUNT 7.4 X10e3 (4.0-10.5)
[2016-06-07 06:02] LABS: BUN/CREATININE RATIO 12.85; CALCIUM SERUM 8.9 mg/dL (8.4-10.2); CREATININE SERUM 0.7 mg/dL (0.6-1.4); GLOM FILT RATE Estimated 117.9 mL/min (>60); MAGNESIUM 1.6 mg/dL (1.6-3.0); POTASSIUM 3.9 mmol/L (3.5-5.1)
[2016-06-08 07:58] LABS: BASOPHIL% 1.1 % (0-2.5); EOSINOPHIL# 0.1 X10e3 (0-0.7); EOSINOPHIL% 1.9 % (0.0-7.0); HEMATOCRIT 29.5 % (35.0-45.0); HEMOGLOBIN 9.6 gm/dL (12.0-16.0); LYMPHOCYTE# 1.3 X10e3 (1.0-3.5); LYMPHOCYTE% 28.5 % (17.0-45.0); MEAN CELL VOLUME 81.1 FL (83-96); MEAN CORPUSCULAR HEMOGLOBIN 26.3 PG (28-34); MEAN CORPUSCULAR HGB CONC 32.4 g/dL (30-36); MEAN PLATELET VOLUME 9.2 FL (6.5-11.5); MONOCYTE# 0.9 X10e3 (0-1.0); MONOCYTE% 19.2 % (3.0-12.0); NEUTROPHIL# 2.3 X10e3 (1.5-7.1); NEUTROPHIL% 49.3 % (40-75); PLATELET COUNT 223 X10e3 (140-420); RED BLOOD COUNT 3.64 X10e (3.90-5.30); RED CELL DISTRIBUTION WIDTH 22.5 % (11.0-15.5); WHITE BLOOD COUNT 4.7 X10e3 (4.0-10.5)
[2016-06-08 07:59] LABS: DIFF IND NO
[2016-06-08 08:20] LABS: BUN/CREATININE RATIO 8.33; CALCIUM SERUM 9.1 mg/dL (8.4-10.2); CREATININE SERUM 0.6 mg/dL (0.6-1.4); GLOM FILT RATE Estimated 124.1 mL/min (>60); POTASSIUM 4.4 mmol/L (3.5-5.1)
[2016-06-09 08:22] LABS: MAGNESIUM 1.5 mg/dL (1.6-3.0); POTASSIUM 3.8 mmol/L (3.5-5.1)
[2016-06-10 08:02] LABS: HEMATOCRIT 32.3 % (35.0-45.0); HEMOGLOBIN 9.9 gm/dL (12.0-16.0); MEAN CELL VOLUME 81.5 FL (83-96); MEAN CORPUSCULAR HGB CONC 30.7 g/dL (30-36); RED BLOOD COUNT 3.96 X10e (3.90-5.30); RED CELL DISTRIBUTION WIDTH 22.2 % (11.0-15.5); WHITE BLOOD COUNT 5.8 X10e3 (4.0-10.5)
[2016-06-10 08:54] LABS: ALBUMIN SERUM 3.3 g/dL (3.5-5.0); BILIRUBIN, DIRECT 0.1 mg/dL (0.0-0.2); BILIRUBIN,INDIRECT 0.4 mg/dL (0.0-0.9); BILIRUBIN,TOTAL 0.5 mg/dL (0.2-2.0); BUN/CREATININE RATIO 7.77; CALCIUM SERUM 9.3 mg/dL (8.4-10.2); CREATININE SERUM 0.9 mg/dL (0.6-1.4); GLOM FILT RATE Estimated 87.1 mL/min (>60); POTASSIUM 4.1 mmol/L (3.5-5.1); PROTEIN TOTAL SERUM 6.7 g/dL (6.0-8.3)
[2016-06-10 10:07] LABS: INR 1.1; PARTIAL THROMBOPLASTIN TIME 22.4 SECONDS (23.5-31.3); PROTHROMBIN TIME (PATIENT) 11.3 SECONDS (9.6-11.5)
[2016-06-10] MEDS ORDERED: BENTYL10 M1 PO (17:25)
[2016-06-10] MEDS ORDERED: MAG-OX 400400 MG PO (17:25)
[2016-06-10] MEDS ORDERED: MULTIVITAMINS1 EAC2 PO (17:26)
[2016-06-10] MEDS ORDERED: MELATIN3 MG PO (17:27)
[2016-06-10] MEDS ORDERED: ROXICODONE5 MG PO (17:28)
== END 2016-06-10 17:37 | disposition home or self-care (01) | DRG 439 ==
LOC: CED 12:12 → CEDOF 13:45 → C3A PCU 21:29 → C2A 06-08 11:33
PROVIDERS: Emergency Medicine; Family Medicine; Internal Medicine
PROC: 0JH63XZ Insertion of Tunneled Vascular Access Device into Chest Subcutaneous Tissue and Fascia, Percutaneous Approach (ICD-10-PCS; principal; 2016-06-10)
PROC: 02HV33Z Insertion of Infusion Device into Superior Vena Cava, Percutaneous Approach (ICD-10-PCS; 2016-06-10)
PROC: B518YZA Fluoroscopy of Superior Vena Cava using Other Contrast, Guidance (ICD-10-PCS; 2016-06-10)
PROC: B548ZZA Ultrasonography of Superior Vena Cava, Guidance (ICD-10-PCS; 2016-06-10)
DX: K85.20 Alcohol induced acute pancreatitis without necrosis or infection (principal); F33.2 Major depressive disorder, recurrent severe without psychotic features; E87.1 Hypo-osmolality and hyponatremia; K86.0 Alcohol-induced chronic pancreatitis; D64.9 Anemia, unspecified; F10.20 Alcohol dependence, uncomplicated; F41.9 Anxiety disorder, unspecified; I10 Essential (primary) hypertension; E87.6 Hypokalemia; K21.9 Gastro-esophageal reflux disease without esophagitis; E83.42 Hypomagnesemia; E03.9 Hypothyroidism, unspecified; R73.9 Hyperglycemia, unspecified; Y90.0 Blood alcohol level of less than 20 mg/100 ml
CPT/HCPCS: 36415; 74177; 76937; 77001; 80048; 80053; 80076; 80307; 81003; 82150; 82550; 82553; 83690; 83735; 84132; 84484; 84703; 85025; 85027; 85610; 85730; 86140; 87086; 93005; 96361; 96374; 96375; 99285; C9113; G0480; J0360; J0690; J1642; J2250; J2270; J2405; J2765; J3010; J3411; J3475; J3490; J7042; Q9967

== ENCOUNTER 2016-07-23 22:19 | Emergency (ER) | payer MEDICARE, OTHER ==
--- NOTE | ~2016-07-23 | CR72 ---
[facility] A Service of [facility] & [facility] RADIOLOGY TEXT RESULTS PATIENT: AGUILA NATHAN LOCATION: [facility] : [birth year] UNIT #: [id number] AGE: [address]: Jaylene Carey APRN SEX: F ORDER DR: [id number] [facility] [address] [place], [place] [address] [id number] E MR#: [id number] Acc #: [id number] NAME: AGUILA NATHAN : 1965 SEX: F STUDY DATE/TIME: 07/23/2016 23:49 UNIT: [facility] ROOM: STUDY DESCRIPTION: CR Chest Single View Portable Attending Physician: Jaylene Carey A.P.R.N. Ordering Physician: Daniel Ford M.D. Primary Care Physician: Giovana Martines M.D. MEDICAL IMAGING REPORT This report is preliminary unless electronic signature is present EXAM Portable chest, 07/23 23:49 INDICATIONS Chest pain for 1 week. History of hypertension. FINDINGS AP portable chest compared with 07/17/2015. The heart remains enlarged. There is chronic scarring in the left mid lung. Lungs otherwise are clear. Right side Port-A-Cath tip in the SVC. No pneumothorax. Pancreatic stent noted in the epigastric region. Cholecystectomy clips present as well. IMPRESSION Stable cardiomegaly with chronic scarring in the left mid lung. No acute findings in the chest. Port-A-Cath tip in the SVC. Pancreatic stent is partially seen in the epigastric region. Dictated by... Arthur Mendoza Jr., M.D. THIS IS AN ELECTRONICALLY VERIFIED REPORT Arthur Mendoza Jr., M.D. at 07/24/2016 10:13 PM JAZIELK/laurel TD: 07/24/2016 01:36 JOB #: [id number] MEDICAL IMAGING REPORT Page 1 of 1 COPY
--- NOTE | ~2016-07-23 | EKG ---
PATIENT: AGUILA NATHAN UNIT #: [id number] Ventricular Rate: 69 BPM Atrial Rate: 69 BPM P-R Interval: 132 ms QRS Duration: 90 ms Q-T Interval: 408 ms QTC Calculation(Bezet): 437 ms P Kirksey: 4 degrees Calculated R Kirksey: 22 degrees Calculated T Kirksey: 4 degrees Diagnosis Line: Normal sinus rhythm Diagnosis Line: Nonspecific T wave abnormality Diagnosis Line: Otherwise normal ECG Diagnosis Line: When compared with ECG of 04-JUN-2016 14:41, Diagnosis Line: QT has shortened Diagnosis Line: Confirmed by BESSIE BARKER MD ([id number]) on 07/24/2016 Diagnosis Line: 10:42:40 AM INTERPRETING MD: MJ VELASCO
--- NOTE | ~2016-07-23 | CT2 ---
[facility] A Service of [facility] & [facility] RADIOLOGY TEXT RESULTS PATIENT: AGUILA NATHAN LOCATION: [facility] : [birth year] UNIT #: [id number] AGE: [address]: Jaylene Carey APRN SEX: F ORDER DR: [id number] [facility] [address] [place], [place] [address] [id number] E MR#: [id number] Acc #: [id number] NAME: AGUILA NATHAN : 1965 SEX: F STUDY DATE/TIME: 07/24/2016 03:40 UNIT: [facility] ROOM: STUDY DESCRIPTION: CT Abd and Pelv W Cont Attending Physician: Jaylene Carey A.P.R.N. Ordering Physician: Jaylene Carey A.P.R.N. Primary Care Physician: Giovana Martines M.D. MEDICAL IMAGING REPORT This report is preliminary unless electronic signature is present EXAM Abdomen and pelvis CT 07/24/2016 03:40 INDICATION Chest pain, nausea for 3 days with generalized abdominal pain and vomiting. TECHNIQUE Axial images were obtained through the abdomen and pelvis following IV contrast administration. Multiplanar reformats were obtained. Comparison made 06/04/2016. This CT examination was performed with one or more of the following radiation dose reduction techniques: automatic exposure control, adjustment of mA and/or kV according to patient size, and iterative reconstruction. FINDINGS ABDOMEN: Lung bases are clear. Gallbladder surgically absent. There is no biliary obstruction. There is marked hepatic steatosis as seen previously. The pancreatic stent remains in good position. The pancreas tissue once again enhances fairly heterogeneously. This is presumably secondary to prior bouts of pancreatitis. No fluid collections are seen to suggest pseudocyst. No definite peripancreatic fat stranding is seen currently to suggest acute pancreatitis. Correlate with laboratory data. Remaining solid organs are normal. The unopacified GI tract is grossly normal. The fat in the right upper quadrant adjacent to the inferior liver and hepatic flexure of the colon is dirty in appearance suggesting some inflammatory change. Again, the adjacent bowel is normal. This is nonspecific. This does appear to represent a change from the previous exam. Probable reactive lymph node near the body of the pancreas seen previously is essentially stable and presumed benign and reactive. Attention on followup is recommended. PELVIS: The bladder is normal. Again seen is a fibroid uterus. The appendix is normal. There is some mild colonic diverticulosis but no STS. [facility] A Service of [facility] & [facility] RADIOLOGY TEXT RESULTS PATIENT: AGUILA NATHAN LOCATION: [facility] : [birth year] UNIT #: [id number] AGE: [address]: Jaylene Carey APRN SEX: F ORDER DR: focal diverticulitis is identified. There is a trace amount of free fluid. Small fat-containing left inguinal hernia. IMPRESSION 1. The pancreas once again demonstrates heterogeneous enhancement, but there is no peripancreatic fat stranding on the current study to suggest acute pancreatitis. Correlate with laboratory data in this regard. Pancreatic duct stent remains in good position. 2. Subtle haziness in the abdominal fat adjacent to the inferior liver and hepatic flexure of the colon. This is nonspecific but presumably inflammatory. Etiology is unclear, as the adjacent colon appears normal. 3. Marked hepatic steatosis. 4. Mild colonic diverticulosis without evidence of focal diverticulitis. The appendix is normal. 5. Trace free fluid in the pelvis. 6. Fibroid uterus. 7. Cholecystectomy. 8. Not mentioned above is severe degenerative disease at L2-3 which is unchanged. Dictated by... Arthur Mendoza Jr., M.D. THIS IS AN ELECTRONICALLY VERIFIED REPORT Arthur Mendoza Jr., M.D. at 07/24/2016 10:13 PM DARRIAN/bonny TD: 07/24/2016 06:32 JOB #: [id number] MEDICAL IMAGING REPORT Page 1 of 1 COPY
[~2016-07-23 22:19] MED LIST changes: +BENTYL10 M1 PO; +HYDRALAZINE HCL25 MG PO; +MAG-OX 400400 MG PO; +MELATIN3 MG PO; +MONTELUKAST SOD10 MG PO; +MULTIVITAMINS1 EAC2 PO; +OLANZAPINE2.5 MG PO; +PHENERGAN25 M1 PO; +PROZAC10 M1 PO; +ROXICODONE5 MG PO; +TRAZODONE HCL150 MG PO; +VOLTAREN100 GM TOP
[2016-07-24 01:38] LABS: POC - CKMB <1.0 ng/mL (0.0-7.9); POC - TROPONIN <0.05 ng/mL (<=0.05)
[2016-07-24 01:41] LABS: BASOPHIL# 0.1 X10e3 (0-0.3); BASOPHIL% 0.8 % (0-2.5); EOSINOPHIL% 0.1 % (0.0-7.0); HEMATOCRIT 30.2 % (35.0-45.0); HEMOGLOBIN 9.5 gm/dL (12.0-16.0); LYMPHOCYTE# 2.6 X10e3 (1.0-3.5); LYMPHOCYTE% 32.7 % (17.0-45.0); MEAN CELL VOLUME 78.7 FL (83-96); MEAN CORPUSCULAR HEMOGLOBIN 24.8 PG (28-34); MEAN CORPUSCULAR HGB CONC 31.5 g/dL (30-36); MEAN PLATELET VOLUME 9.1 FL (6.5-11.5); MONOCYTE# 0.8 X10e3 (0-1.0); MONOCYTE% 9.4 % (3.0-12.0); NEUTROPHIL# 4.6 X10e3 (1.5-7.1); RED BLOOD COUNT 3.83 X10e (3.90-5.30); RED CELL DISTRIBUTION WIDTH 22.5 % (11.0-15.5)
[2016-07-24 01:42] LABS: DIFF IND YES; PLATELET COUNT 175 X10e3 (140-420)
[2016-07-24 01:44] LABS: PLATELET ESTIMATE NORMAL (NORMAL)
[2016-07-24 01:45] LABS: HYPOCHROMIA SL; MICROCYTOSIS SL; TARGET CELLS MOD
[2016-07-24 01:50] LABS: ALBUMIN SERUM 3.7 g/dL (3.5-5.0); BILIRUBIN, DIRECT 0.3 mg/dL (0.0-0.2); BILIRUBIN,INDIRECT 0.3 mg/dL (0.0-0.9); BILIRUBIN,TOTAL 0.6 mg/dL (0.2-2.0); CALCIUM SERUM 8.7 mg/dL (8.4-10.2); CREATININE SERUM 0.7 mg/dL (0.6-1.4); GLOM FILT RATE Estimated 117.9 mL/min (>60); POTASSIUM 3.5 mmol/L (3.5-5.1); PROTEIN TOTAL SERUM 7.6 g/dL (6.0-8.3)
[2016-07-24 03:02] LABS: AMYLASE 13 U/L (0-46); LIPASE 40 U/L (22-51)
[2016-07-24 03:19] LABS: POC - CKMB <1.0 ng/mL (0.0-7.9); POC - TROPONIN <0.05 ng/mL (<=0.05)
[2016-07-24 03:21] LABS: INR 1.1; PARTIAL THROMBOPLASTIN TIME 26.4 SECONDS (23.5-31.3)
[2016-07-24 05:14] LABS: URINE SOURCE CLEAN CATCH
[2016-07-24 05:34] LABS: URINE APPEARANCE CLEAR; URINE BILIRUBIN NEG (NEG); URINE BLOOD NEG (NEG); URINE COLOR YELLOW; URINE GLUCOSE NEG (NEG); URINE KETONE NEG (NEG); URINE LEUKOCYTE ESTERASE NEG (NEG); URINE NITRATE NEG (NEG); URINE PH 7.5 (5-8); URINE PROTEIN NEG (NEG)
[2016-07-24 05:37] LABS: CULTURE INDICATED? NO
[2016-07-24 06:04] LABS: AMPHETAMINE NEG (NEG); BARBITURATES NEG (NEG); BENZODIAZEPINES POS (NEG); COCAINE NEG (NEG); MARIJUANA NEG (NEG); OPIATES POS (NEG); TRICYCLIC ANTIDEPRESSANTS NEG (NEG); U METHADONE NEG (NEG)
== END 2016-07-24 05:54 | disposition home or self-care (01) ==
LOC: CED 22:19
PROVIDERS: Emergency Medicine; Nurse Practitioner
DX: R10.9 Unspecified abdominal pain (principal); K21.9 Gastro-esophageal reflux disease without esophagitis; I10 Essential (primary) hypertension; F31.9 Bipolar disorder, unspecified; Z90.49 Acquired absence of other specified parts of digestive tract; Z88.5 Allergy status to narcotic agent; Z79.899 Other long term (current) drug therapy
CPT/HCPCS: 36415; 71010; 74177; 80048; 80076; 80307; 81003; 82150; 82553; 83690; 84484; 85025; 85610; 85730; 93005; 96361; 96374; 96375; 99284; C9113; J1642; J2270; J2405; Q9967

== ENCOUNTER → 2016-09-04 | Outpatient (CLI) | payer OTHER | END | disposition home or self-care (01) | LOC: CSSDAY 13:19 | PROC: 3C1ZX8Z Irrigation of Indwelling Device using Irrigating Substance, External Approach (ICD-10-PCS; principal; 2016-09-04) | DX: Z45.2 Encounter for adjustment and management of vascular access device (principal) | CPT/HCPCS: G0463; J1642 ==